=== PATIENT | male | born 1965 | race African-American/Black ===

== ENCOUNTER 2018-10-31 20:19 | Emergency (ER) | payer OTHER ==
[~2018-10-31] VITALS: Ht 185.4 cm; Wt 140.6 kg
[~2018-10-31 20:19] MED LIST: AMLO5TAB13 PO; CARV25TA PO; DIGO0.1262 PO; FURO80TA PO; WARF5TAB71 PO
[2018-10-31 20:40] VITALS: BP 123/87
[2018-10-31 21:14] LABS: Basophils # (auto) 0.1 uL; Eosinophils # (auto) 0.1 uL; Hemoglobin 12.2 g/dL (13.5-17.5); Lymphocytes # (auto) 2.8 uL
[2018-10-31 21:15] LABS: Basophils % (auto) 0.7 % (0.0-2.0); Eosinophils % (auto) 1.1 % (0.0-7.0); Hematocrit 37.5 % (41.0-53.0); Lymphocytes % (auto) 30.9 % (10.0-50.0); Mean Corpuscular Hemoglobin 23.6 pg (28.0-32.0); Mean Corpuscular Hgb Conc. 32.4 g/dL (32.0-36.0); Mean Corpuscular Volume 72.9 fL (80.0-100.0); Monocytes # (auto) 0.7 uL; Monocytes % (auto) 8.2 % (0.0-12.0); Neutrophils # (auto) 5.3 uL; Neutrophils % (auto) 59.1 % (37.0-80.0); Nucleated Red Blood Cells % 0.1 %; Platelet Count (auto) 243 10^3/uL (140-450); Red Blood Cells 5.15 10^6/uL (4.5-5.90); Red Cell Distribution Width 17.1 % (11.8-14.3)
[2018-10-31 21:43] LABS: Albumin 3.1 g/dL (3.4-5.0); BUN/Creatinine Ratio 15.1; Potassium 3.5 mmol/L (3.5-5.1)
[2018-10-31 21:44] LABS: INR 3.28 (0.9-1.15); Partial Thromboplastin Time 40.4 sec (23.64-32.05); Prothrombin Time 33.5 sec (9.06-12.60)
[2018-10-31 21:48] LABS: Bilirubin, Total 0.7 mg/dL (0.2-1.0); Total Protein 6.6 g/dL (6.4-8.2)
== END 2018-11-01 02:04 | disposition home or self-care (01) ==
LOC: ER 20:22
DX: R04.0 Epistaxis (principal); I48.91 Unspecified atrial fibrillation; I13.0 Hypertensive heart and chronic kidney disease with heart failure and stage 1 through stage 4 chronic kidney disease, or unspecified chronic kidney disease; N18.9 Chronic kidney disease, unspecified; I50.9 Heart failure, unspecified; R51 Headache; Z86.73 Personal history of transient ischemic attack (TIA), and cerebral infarction without residual deficits; Z95.1 Presence of aortocoronary bypass graft
CPT/HCPCS: 36415; 70450; 70487; 80053; 84484; 85025; 85610; 85730; 93005

== ENCOUNTER 2018-11-10 01:05 | Emergency (ER) | payer MEDICAID, OTHER ==
[~2018-11-10] VITALS: Ht 185.4 cm; Wt 140.6 kg
[2018-11-10 01:39] LABS: Basophils # (auto) 0 uL; Basophils % (auto) 0.5 % (0.0-2.0); Eosinophils # (auto) 0.1 uL; Eosinophils % (auto) 1.8 % (0.0-7.0); Hematocrit 25.9 % (41.0-53.0); Hemoglobin 8.3 g/dL (13.5-17.5); Lymphocytes # (auto) 2.4 uL; Mean Corpuscular Hemoglobin 23.3 pg (28.0-32.0); Mean Corpuscular Hgb Conc. 32.2 g/dL (32.0-36.0); Mean Corpuscular Volume 72.5 fL (80.0-100.0); Monocytes # (auto) 0.8 uL; Monocytes % (auto) 9.5 % (0.0-12.0); Neutrophils # (auto) 4.8 uL; Neutrophils % (auto) 59.2 % (37.0-80.0); Nucleated Red Blood Cells % 0.4 %; Platelet Count (auto) 405 10^3/uL (140-450); Red Blood Cells 3.57 10^6/uL (4.5-5.90); Red Cell Distribution Width 16.9 % (11.8-14.3); White Blood Cell 8.2 10^3/uL (4.4-10.8)
[2018-11-10 01:54] LABS: INR 2.72 (0.9-1.15); Partial Thromboplastin Time 38.9 sec (23.64-32.05)
[2018-11-10 01:55] LABS: Potassium 3.4 mmol/L (3.5-5.1)
[2018-11-10 01:59] LABS: Albumin 3.1 g/dL (3.4-5.0); BUN/Creatinine Ratio 8.1; Magnesium 1.7 mg/dL (1.6-2.6)
[2018-11-10 02:04] LABS: Bilirubin, Total 0.4 mg/dL (0.2-1.0); Total Protein 6.9 g/dL (6.4-8.2)
[2018-11-10] MEDS ORDERED: POTASSIUM EFFERVESENT TAB 25 MEQ PO ONE (08:15)
[2018-11-10 08:18] VITALS: BP 138/82
== END 2018-11-10 08:02 | disposition home or self-care (01) ==
LOC: ER 01:07
DX: R07.89 Other chest pain (principal); R25.2 Cramp and spasm; E87.6 Hypokalemia; I13.0 Hypertensive heart and chronic kidney disease with heart failure and stage 1 through stage 4 chronic kidney disease, or unspecified chronic kidney disease; N18.9 Chronic kidney disease, unspecified; I50.9 Heart failure, unspecified; I48.91 Unspecified atrial fibrillation; Z86.73 Personal history of transient ischemic attack (TIA), and cerebral infarction without residual deficits; Z95.1 Presence of aortocoronary bypass graft; Z79.899 Other long term (current) drug therapy
CPT/HCPCS: 36415; 71046; 80053; 83735; 83880; 84484; 85025; 85610; 85730; 93005

== ENCOUNTER 2019-02-21 16:23 | Emergency (ER) | payer MEDICAID ==
[~2019-02-21] VITALS: Ht 185.4 cm; Wt 139.3 kg
[~2019-02-21 16:23] MED LIST changes: -AMLO5TAB13 PO; +AMLO5TAB15 PO; +FURO1TAB32 PO; -FURO80TA PO
[2019-02-21 17:47] LABS: Partial Thromboplastin Time 68.1 sec (23.64-32.05)
[2019-02-21 18:54] VITALS: BP 130/70
== END 2019-02-21 19:19 | disposition home or self-care (01) ==
LOC: ER 16:23
DX: S50.11XA Contusion of right forearm, initial encounter (principal); I48.91 Unspecified atrial fibrillation; M10.9 Gout, unspecified; I12.9 Hypertensive chronic kidney disease with stage 1 through stage 4 chronic kidney disease, or unspecified chronic kidney disease; N18.9 Chronic kidney disease, unspecified; Z79.01 Long term (current) use of anticoagulants; Z79.899 Other long term (current) drug therapy; Z86.73 Personal history of transient ischemic attack (TIA), and cerebral infarction without residual deficits; Z95.1 Presence of aortocoronary bypass graft; W01.198A Fall on same level from slipping, tripping and stumbling with subsequent striking against other object, initial encounter; Y93.89 Activity, other specified; Y99.8 Other external cause status; Y92.89 Other specified places as the place of occurrence of the external cause
CPT/HCPCS: 36415; 85610; 85730; 93971

== ENCOUNTER 2019-06-11 04:07 | Emergency (ER) | payer OTHER, MEDICAID ==
[~2019-06-11] VITALS: Ht 185.4 cm; Wt 136.1 kg
[~2019-06-11 04:07] MED LIST changes: +DIGO0.12 PO; -DIGO0.1262 PO
[2019-06-11 04:47] VITALS: BP 136/92
== END 2019-06-11 06:58 | disposition left against medical advice (07) ==
LOC: ER 04:07
DX: M54.2 Cervicalgia (principal); M54.9 Dorsalgia, unspecified; Z53.21 Procedure and treatment not carried out due to patient leaving prior to being seen by health care provider; V43.62XA Car passenger injured in collision with other type car in traffic accident, initial encounter; Y93.89 Activity, other specified; Y92.488 Other paved roadways as the place of occurrence of the external cause; Y99.8 Other external cause status